=== PATIENT | female | born 1960 | race African-American/Black ===

== ENCOUNTER 2019-03-03 17:51 | Inpatient (IN) ==
--- NOTE | 2019-03-03 18:52 | PROVIDER DOCUMENTATION ---
HPI-General Adult - General Chief Complaint: General Adult Stated Complaint: TRANSVER MYELITIS Time Seen by Provider: 03/03/19 18:11 Source: patient Allergies/Adverse Reactions: Patient Allergies Allergy/AdvReac Type Severity Reaction Status Date / Time No Known Allergies Allergy Verified 03/03/19 18:00 Home Medications: Home Medication List Medication Instructions Recorded Confirmed Last Taken Type Duloxetine [Cymbalta] 60 mg PO BID 03/05/15 03/03/19 03/03/19 History Metformin HCl 500 mg PO BID 02/28/16 03/03/19 03/03/19 History ATORVAstatin [Lipitor] 1 tab PO DAILY 03/03/19 03/03/19 03/02/19 History Amitriptyline HCl 2 tab PO QHS 03/03/19 03/03/19 03/02/19 History Azathioprine 1 tab PO TID 03/03/19 03/03/19 03/03/19 History Carbamazepine [Carbamazepine ER] 1 tab PO DAILY 03/03/19 03/03/19 03/03/19 History Pantoprazole [Protonix] 1 tab PO DAILY 03/03/19 03/03/19 03/03/19 History Pregabalin [Lyrica] 1 cap PO BID 03/03/19 03/03/19 03/03/19 History - History of Present Illness -Gen Adult Nature of Presenting Problems: 58 yr old F, hx of transverse myelitis diagnosed in 2016, presents today with left lower extremity weakness, and complaints of her legs feeling heavy. She reports symptoms started yesterday, and by today, felt as though she could not lift her legs, and so she presented to the ED. Pt was last hospitalized in 2018 with similar symptoms. Today, she denies slurring of speech, chest pain, SOB, headache, changes in vision, and other than her left lower extremity weakness, no other focal weakness. Location of Pain/Injury: reports: lower extremity Onset/Duration: reports: 24 hours ago Similar Symptoms Previously?: Yes Recently seen or treated by another doctor?: No Review of Systems - Adult - REVIEW OF SYSTEMS - ADULT Constitutional: reports: no symptoms reported Eyes: reports: no symptoms reported Ears, Nose, Mouth & Throat: reports: no symptoms reported Cardiovascular: reports: no symptoms reported Respiratory: reports: no symptoms reported Gastrointestinal: reports: no symptoms reported Genitourinary: reports: no symptoms reported Musculoskeletal: reports: no symptoms reported Integumentary: reports: no symptoms reported Neurological: reports: other (left lower extremity weakness) Endocrine: reports: no symptoms reported Past History - Adult - PAST MEDICAL HISTORY-ADULT Review of Records: reports: Nursing Assessment Review, Social history reviewed & non-contributory. Musculoskeletal: reports: fibromyalgia Neurological: reports: other (transverse myelitis) Endocrine/Immune: reports: Diabetes - PRIOR SURGERIES/PROCEDURES Surgical/Procedure History: reports: other (elbow, bunion ) - IMMUNIZATION STATUS Childhood Immunizations: See Nurse Assessment Flu Vaccine: See Nurse Assessment Physical Exam-General - PHYSICAL EXAM-ADULT Initial Vital Signs Reviewed: Yes - CONSTITUTIONAL General Appearance: appears well, alert, no apparent distress - EYES Eyes: PERRL/EOMI - HEAD, EARS, NOSE, MOUTH & THROAT HENMT: normocephalic/atraumatic, moist mucous membranes - RESPIRATORY Respiratory: chest non-tender, lungs clear, normal breath sounds - CARDIOVASCULAR Cardiovascular: regular rate, rhythm - GASTROINTESTINAL (ABDOMEN) Abdominal Exam: normal bowel sounds, non tender, soft - GENITOURINARY Rectal Exam: normal rectal tone - MUSCULOSKELETAL Extremity: non-tender, normal inspection - NEUROLOGIC Neurologic: grossly normal, no motor/sensory deficits - PSYCHIATRIC Psych/Mental Status: normal mood/affect, oriented x 3 Progress - PLAN OF CARE/RESULTS Progress/Plan/Lab Results: Vital Signs - 8 hr 03/03/19 17:56 Temperature 97.7 F Pulse Rate 97 H Respiratory Rate 19 Blood Pressure 122/55 O2 Sat by Pulse Oximetry 97 Orders Category Date Time Status CT HEAD W/O CONTRAST [CT] Stat Exams 03/03/19 18:14 Taken CBC WITH ELECTRONIC DIFF [HEME] Stat Lab 03/03/19 18:15 Uncollected CMP [COMPREHENSIVE METABOLIC PANEL] [CHEM] Stat Lab 03/03/19 18:15 Uncollected PROTIME WITH INR [COAG] Stat Lab 03/03/19 18:15 Uncollected PTT [COAG] Stat Lab 03/03/19 18:15 Uncollected URINALYSIS W/POSS RFLX CULT [URINALYSIS] Stat Lab 03/03/19 18:15 Uncollected Spoke with neurologist via transfer center. Recommend admission here; since case was chronic, no need for transfer at this time. Plan to consult Dr. Townsend in the AM. Spoke with hospitalist about the case, who agreed to accept. Result Diagrams: 03/03/19 18:55 03/03/19 18:55 - CONSULTS/PCP/HOSPITALIST Notification #1 *Consult/PCP/Hospitalist*: Dr. Perez (sp?) Time Discussed: 20:15 Reason/Comments: spoke with Transfer center, no need to transfer but recs admit Consult Disposition: other (spoke with neurologist ([facility], I believe) - does not need transfer as this is a chroninc dx, but they do recommend admission, with consultation with Dr. Townsend, the pt's regular neurologist in the AM.) #2 Consult: Dr. Land Time Discussed: 20:25 Consult Disposition: Admit Departure - Departure Date of Disposition Decision: 03/03/19 Time of Disposition Decision: 20:49 DIAGNOSIS: Hyperglycemia due to type 2 diabetes mellitus, Lower extremity weakness Disposition: ADMITTED INPATIENT 09 Certified Medical Emergency: Emergent Condition: Fair Referrals and Follow-Ups: Manjeet Flores Jr, MD [Primary Care Provider] - - Critical Care Note This patient required my direct & personal management of CC.: No Attestation - Physician/ ANA MARIA Attestation Patient care was provided by Advanced Practice Provider:: No The physician spent face to face time with patient:: Yes Advanced Practice Provider documentation review:: Supervising physician onsite and consulted in the evaluation and care of this patient. The physician did have a face to face encounter with the patient.
--- NOTE | 2019-03-03 19:03 | Diag Imaging Result Doc PS360 ---
EXAM: CT HEAD W/O CONTRAST INDICATION: lower extremity weakness TECHNIQUE: This exam was performed using automated exposure control, adjustment of mA or kV according to patient size, and/or use of iterative reconstruction technique. COMPARISON: 02/27/2016 FINDINGS: There is a small focus of subcortical low-attenuation in the medial left parietal lobe on image 23 of series 2. This probably represents focal white matter microangiopathy. However, it is not clearly identified on the previous study. A small acute subcortical infarct is possible. Please correlate with physical exam. There is no other definite acute infarct given the limited sensitivity of CT versus MRI. There is a bony excrescence seen at the inner table of the skull anteriorly on the left that is stable. This could represent a densely calcified meningioma. There is no other discrete intracranial mass, mass effect, or intracranial hemorrhage. The surrounding soft tissues and bony structures are essentially unremarkable. IMPRESSION: Small low dense focus in the subcortical white matter of the medial left parietal lobe as described that probably represents mild focal white matter microangiopathy. However, an acute subcortical infarct cannot completely be excluded. Please correlate with physical exam. Electronically signed by James Wagner 03/03/2019 7:01 PM
[2019-03-03 19:05] LABS: BASO# 0.01 X1000 (0.0-0.2); BASO% 0.4 % (0.0-0.8); HEMATOCRIT 34.7 % (37.0-47.0); HEMOGLOBIN 12.4 g/dL (12.0-16.0); LYMPH# 0.95 X1000 (1.2-3.4); LYMPH% 40.4 % (20.5-51.1); MCHC 35.7 g/dL (33-37); MCV 92.3 FL (81-99); MONO# 0.17 X1000 (0.11-0.59); MONO% 7.2 % (1.7-9.3); MPV 12.7 FL (7.4-10.4); NEUT# 1.22 X1000 (1.4-6.5); PLT 155 X1000 (130-400); RBC 3.76 XMIL (4.2-5.4); RDW 15.8 % (11.5-14.5); WBC 2.35 X1000 (4.8-10.8)
[2019-03-03 19:12] LABS: INR 0.88
[2019-03-03 19:49] LABS: AGAP 15; ALB/GLOB RATIO 1.5; ALBUMIN 3.7 g/dL (3.5-5.0); ALKALINE PHOSPHATASE 138 U/L (32-104); BUN 13 mg/dL (8-22); CALCIUM 7.7 mg/dL (8.8-10.2); CHLORIDE 92 mmol/L (98-107); COSMO 291; ESTIMATED GFR > 60; GLUCOSE 578 mg/dL (70-104); GOT 18 U/L (10-30); GPT 16 U/L (10-36); POTASSIUM 4.3 mmol/L (3.5-5.1); SODIUM 132 mmol/L (136-145); TCO2 25 mmol/L (25-35); TOTAL BILIRUBIN 0.37 mg/dL (0.20-1.00); TOTAL PROTEIN 6.1 g/dL (6.3-8.3)
[2019-03-03] MEDS ORDERED: NS 1,000 ML IV ONE (19:52)
[2019-03-03] MEDS ORDERED: HUMULIN R SUBQ ONE (19:57)
[2019-03-03 20:46] LABS: URINE SOURCE CLEAN CATCH
[2019-03-03 20:48] LABS: BILIRUBIN URINE NEGATIVE (NEGATIVE); BLOOD URINE NEGATIVE (NEGATIVE); COLOR YELLOW; GLUCOSE URINE >1000 mg/dL (NEGATIVE); KETONE URINE 10 mg/dL (NEGATIVE); LEUKOCYTES URINE NEGATIVE (NEGATIVE); NITRITE URINE NEGATIVE (NEGATIVE); PROTEIN URINE NEGATIVE (NEGATIVE); SP GRAVITY URINE 1.039; TURBIDITY URINE CLEAR (CLEAR); UROBILINOGEN URINE NORMAL (NORMAL)
[2019-03-03 20:49] LABS: UR EPITHELIAL CELLS <10 /HPF (<10); URINE BACTERIA NEGATIVE /HPF; URINE RBC <10 /HPF (<10); URINE WBC <10 /HPF (<10)
[2019-03-04] MEDS ORDERED: ZOFRAN IV PRN (00:48)
[2019-03-04] MEDS ORDERED: TYLENOL PO PRN (00:48)
[2019-03-04] MEDS: NS 1,000 ML IV SCH ×2 (01:30→14:43)
[2019-03-04] MEDS: CYMBALTA PO SCH ×3 (01:55→22:05)
[2019-03-04] MEDS: LYRICA PO SCH ×3 (01:55→22:07)
[2019-03-04] MEDS: ELAVIL PO SCH ×2 (01:56→22:05)
[2019-03-04] MEDS: HUMALOG SUBQ SCH ×5 (02:06→21:05)
--- NOTE | 2019-03-04 06:47 | HISTORY AND PHYSICAL ---
CHIEF COMPLAINT: Exacerbation of transverse myelitis. HISTORY OF PRESENT ILLNESS: The patient is a 58-year-old female who notes that she has a known history of transverse myelitis. She states that it is typically it is based in the left leg with weakness. States she has been told in the past when the pain becomes sharp she is to come to the hospital for treatment. She was in her usual state of health on Monday morning. However, she noted Monday night, 2 nights ago, the patient started having weakness in her left lower extremity today. She states that she was having walking left leg. She therefore came to the hospital. She states she has a known history of diabetes, but does not take anything other than metformin. She does not check her blood sugar on any regular basis. blurred vision lately and states this is not typical of her transverse myelitis symptoms. PAST MEDICAL HISTORY: Fibromyalgia, diabetes, transverse myelitis. SURGICAL HISTORY: She has had surgery on her elbow in the past. FAMILY HISTORY: Noncontributory. No family history of neurological issues. SOCIAL HISTORY: She lives at homes with her sister. Does not smoke or drink. ALLERGIES: No known drug allergies. MEDICATIONS: Cymbalta, metformin 500 mg twice daily, Lipitor, amitriptyline, azathioprine, Protonix, and Lyrica. REVIEW OF SYSTEMS: As noted above. Positive blurred vision. Denied any focalized weakness other than her left lower extremity. Denies any recurrent weakness. Denies headaches, blurred vision, change in vision. Otherwise, the other than the past two or three days, denies dysuria, frequency, urgency, constipation, melena, hematochezia. Denies any weight loss, weight gain, chest pain, palpitations, shortness of breath. PHYSICAL EXAMINATION: VITAL SIGNS: Reviewed. Temperature 97.7 degrees, pulse rate is 97, respiratory 19, BP 122/55. Saturations 97% on room air. GENERAL: Patient is awake, alert. She is in no current respiratory distress. HEENT: Normocephalic. NECK: Supple. CARDIOVASCULAR: Regular rate. CHEST: Clear and nonlabored. ABDOMEN: Soft, nondistended, nontender. EXTREMITIES: Moves all extremities with the exception of left lower extremity which does appear to be slightly weaker than her right lower extremity. NEUROLOGIC: She is awake, alert, and oriented x3 otherwise. LABORATORY DATA: WBCs 2.3. Sodium 132. Creatinine 1.0. Glucose 578. CT head essentially negative. ASSESSMENT: 1. Diabetes with hyperglycemia. 2. Lower extremity weakness, likely secondary to history of transverse myelitis. 3. Leukopenia of unclear origin. 4. Myalgias. 5. Depression. 6. High cholesterol. PLAN: We will continue patient in the hospital on current home medications. We will hold metformin currently in case further imagining needs to be done. She has already been given a fluid bolus as well as insulin bolus in the ER. If we can get her sugar controlled, then we certainly could try steroids at that point. We will consult Neurology in the a.m. cc: Sandoval Land MD [facility]
[2019-03-04 08:04] LABS: BASO# 0.01 X1000 (0.0-0.2); BASO% 0.5 % (0.0-0.8); EOS# 0.01 X1000 (0.0-0.7); EOS% 0.5 % (0.0-10.0); HEMATOCRIT 33.2 % (37.0-47.0); HEMOGLOBIN 11.4 g/dL (12.0-16.0); LYMPH# 0.84 X1000 (1.2-3.4); LYMPH% 40.8 % (20.5-51.1); MCHC 34.3 g/dL (33-37); MCV 93.3 FL (81-99); MONO# 0.17 X1000 (0.11-0.59); MONO% 8.3 % (1.7-9.3); MPV 12.3 FL (7.4-10.4); NEUT# 1.03 X1000 (1.4-6.5); NEUT% 49.9 % (42.2-75.2); PLT 136 X1000 (130-400); RBC 3.56 XMIL (4.2-5.4); RDW 15.7 % (11.5-14.5); WBC 2.06 X1000 (4.8-10.8)
[2019-03-04 08:39] LABS: AGAP 14; BUN 9 mg/dL (8-22); CALCIUM 7.5 mg/dL (8.8-10.2); CHLORIDE 104 mmol/L (98-107); COSMO 283; CREATININE 0.5 mg/dL (0.5-0.9); ESTIMATED GFR > 60; GLUCOSE 215 mg/dL (70-104); POTASSIUM 3.5 mmol/L (3.5-5.1); SODIUM 139 mmol/L (136-145); TCO2 21 mmol/L (25-35)
[2019-03-04] MEDS: LIPITOR PO SCH (08:54)
[2019-03-04] MEDS: PROTONIX PO SCH (08:54)
[2019-03-04] MEDS: LOVENOX SUBQ SCH (08:55)
[2019-03-04] MEDS ORDERED: IMURAN PO SCH (09:00)
--- NOTE | 2019-03-04 10:07 | PROGRESS NOTE ---
DATE: 03/04/2019 Ms. Rivera came in with exacerbation of transverse myelitis. A 58-year-old and she has known history of transverse myelitis, typically based in the left leg with weakness. It seemed to be weaker and came to the emergency room. They found that her blood sugar was high. Actually, the CAT scan revealed may be some improvement. She has a history of fibromyalgia, diabetes mellitus type 2, and transverse myelitis, came on about a year ago. Diabetes mellitus with hyperglycemia. PHYSICAL EXAMINATION: Temperature afebrile. Temperature this morning of 97.9, pulse 80, respirations 18, blood pressure 117/67. Pupils are equal. No distended neck veins. Lungs are clear in all lung yip. Cardiovascular Examination: Regular rhythm and rate without murmur or S3. Abdomen is soft. Skin is warm and dry. ASSESSMENT AND PLAN: Note, she is on a sliding scale. Sugars are back down now. She is on Cymbalta 60 mg twice a day, Lipitor 10 mg a day, Elavil 50 mg at bedtime, Lyrica 150 mg twice a day, and she takes azathioprine three times a day and carbamazepine extended release. She takes that I believe once a day. Dr. Townsend has been consulted. See if he has any recommendations. I think that she can get her sugar under control with just oral medicine. She is on metformin at home. Right now, sugars have come down nicely but I think a combination of metformin and maybe glipizide will keep her sugars low. cc: Jose Olivia MD
--- NOTE | 2019-03-04 17:36 | Diag Imaging Result Doc PS360 ---
EXAM: MRI BRAIN W/WO CONTRAST - 03/04/2019 HISTORY: follow up CT; h/o NMO TECHNIQUE: MRI lumbar spine without and with contrast. COMPARISON: 02/28/2016 MRI brain, 03/03/2019 CT head without contrast FINDINGS: There are chronic microvascular ischemic changes. The diffusion weighted images show no areas of restricted diffusion (no evidence of acute infarct). There is stable small low signal area at the superior left frontal region which is compatible with the calcified lesion arising at the inner table of the skull which is visible on the CT scan. This likely represents an osteoma or meningioma. There is no associated edema. There is no other evidence of intracranial hemorrhage, mass effect, midline shift, or hydrocephalus. There is no abnormal enhancement identified. IMPRESSION: Chronic microvascular ischemic changes. No visible acute intracranial abnormality. No evidence of acute infarct. Electronically signed by Juanito Mcintosh 03/04/2019 5:34 PM
--- NOTE | 2019-03-04 19:05 | Diag Imaging Result Doc PS360 ---
EXAM: MRI CERVICAL SPINE W/CONTRAST - 03/04/2019 HISTORY: left leg weakness, h/o NMO spectrum and TM TECHNIQUE: MRI cervical spine without with contrast. Images are obtained prior to and following gadolinium administration. COMPARISON: 12/11/2017 FINDINGS: There is mild narrowing of the spinal canal at C3-4 by central disc protrusion and ligamentum flavum hypertrophy. This appears of increased, most conspicuously the ligamentum flavum hypertrophy. There is central disc bulge at C4-5. There is mild degenerative narrowing of the right C4-5 neural foramen. There is central disc bulge at C6-7. There is no spinal cord compression identified. There is no spinal cord edema identified. There is no abnormal enhancement identified. There is no subluxation seen. IMPRESSION: Overall mild degenerative changes. These are most prominent at C3-4, where there is associated mild narrowing of the spinal canal. No evidence of spinal cord edema. No evidence of enhancing lesion. Electronically signed by Juanito Mcintosh 03/04/2019 7:03 PM
[2019-03-04] MEDS: TEGRETOL XR PO SCH (19:10)
--- NOTE | 2019-03-04 20:47 | CONSULTATION ---
DATE OF CONSULTATION: 03/04/2019 REASON FOR CONSULT: Left leg weakness. HISTORY OF PRESENT ILLNESS: This is a 58-year-old black female with history of diagnosed transverse myelitis in 2016. I believe she also had positive NMO antibodies and NMO spectrum disorder. She follows with Dr. Townsend. She reports that 3 days ago, on Monday, she began to notice tiredness in her left leg. On Monday, that tiredness persisted and she felt that the left leg was becoming a little bit weaker than her baseline weakness. On Monday, she decided to come to the emergency department for evaluation. She denies increased numbness. Denies visual disturbance, dysarthria, difficulty swallowing, headache. No new back pain or neck pain. No new paresthesia from baseline. No new numbness or weakness elsewhere. No changes to bowel and bladder habits. Since her arrival, she says that the symptoms have plateaued rather than continued to decline as she was expecting. Of note, her blood sugar was noted to be above 500, and she states that is not typical. She does take azathioprine. PAST MEDICAL HISTORY: Includes: 1. Transverse myelitis, diagnosed 2015. MRI report from that time seems to describe longitudinally extensive TM. I believe she may have had positive NMO antibodies, possibly a diagnosis of NMO spectrum disorder. 2. Fibromyalgia. 3. Diabetes. 4. Past elbow surgery. 5. Supraventricular tachycardia. 6. Hiatal hernia. SOCIAL HISTORY: She lives with her sister. No alcohol or tobacco. No illicits. FAMILY HISTORY: No similar neurologic disease. ALLERGIES: No known drug allergies listed. MEDICATIONS: Include: 1. Cymbalta. 2. Metformin. 3. Lipitor. 4. Amitriptyline. 5. Azathioprine. 6. Protonix. 7. Lyrica. REVIEW OF SYSTEMS: Balance of 12 systems conducted and otherwise negative except that detailed in the HPI. PHYSICAL EXAMINATION: Afebrile, blood pressure 117/67, pulse 80, respirations 18, 100% on room air. Ms. Rivera is supine in bed with head of bed elevated. She is awake, alert, oriented. Speech fluent. No language disturbance. She is appropriate and spontaneous. Follows simple and complex commands. Pupils equal, round, and reactive to light. Gaze is conjugate. Ocular movements full. Visual yip intact to direct confrontational testing. Face symmetric with equal activation. Facial sensation reported intact. She can hear. Tongue is midline. Palate elevates symmetrically. Shoulder shrug is full. No drift. Strength in the arms is preserved and symmetric as tested. This is also true for the right lower extremity. In the left lower extremity, strength is preserved with the exception of left knee extensor which I can just over comment 4 to 4+ out of 5. Reflexes are diminished at the wrists, knees, and ankles. No clonus. Plantar response is silent, but with excessive withdrawal. [id number] and rapid alternating movements are preserved. She reports a sensory level at around the T4 level on the left, but not the right, and that is anteriorly and posteriorly. She reports diminished sensation on the left leg compared to the right. She makes errors on joint position sense of the great toes bilaterally, possibly worse on the left on the right, though not certain about that. Gait: She was able to stand without assistance. She did use assistance briefly while walking in the room toward the bathroom door, but subsequently walked by herself in the bathroom. She was able to stand up again afterward without assistance. DIAGNOSTICS: Blood sugar above 500 on admission. White count 2.0. BUN 9, creatinine 0.5. Blood sugar current 359. Calcium 7.5. Urinalysis shows greater than 1000 glucose, [address] on arrival: Small low dense focus in the subcortical white matter of the medial left parietal lobe, probably representing mild global white matter microangiopathy. Acute subcortical infarct cannot be completely excluded. ASSESSMENT AND PLAN: 1. Increased left lower extremity weakness, onset 3 days ago. 2. History of transverse myelitis in 2016. I believe there were positive NMO antibodies and concern for NMO spectrum disorder. 3. Diabetes, poorly controlled, with blood glucose above 500 on admission. I would like to get MRI of the cervical and thoracic spine with and without contrast for evaluation. Since she is ambulating, lacks bowel/bladder changes, is quite hyperglycemic and reports symptoms have stabilized, I would hold off on initiation of steroids at this time. I recommend continuing close monitoring. Continue aggressive blood sugar management. PT. ADDENDUM: pt denied visual symptoms to me, but I see that she reported visual blurring on admission. HCT was questionable. Will add on MRI of the brain, especially given NMO concern. Thank you for this consultation. cc: Mayela Roe MD MTDD
--- NOTE | 2019-03-04 21:00 | Diag Imaging Result Doc PS360 ---
EXAM: MRI THORACIC SPINE W/WO CON - 03/04/2019 HISTORY: left leg weakness; h/o NMO and TM TECHNIQUE: MRI thoracic spine without with contrast. Images are obtained prior to and following gadolinium administration. COMPARISON: 03/01/2016 FINDINGS: There are multilevel degenerative changes with posterior disc bulges. There is mild narrowing the spinal canal at T9-10 and T10-11 by posterior disc bulges in combination with facet hypertrophy. There is no spinal cord compression identified. There is no compression fracture or substantial bone marrow edema identified. There is no subluxation identified. There is some thinning of the upper thoracic spinal cord which is most conspicuous in the AP dimension. There is no spinal cord edema identified. There is no abnormal enhancement identified. IMPRESSION: Multilevel degenerative changes with posterior disc bulges. Mild narrowing of spinal canal at T9-10 and T10-11 by posterior disc bulges and facet hypertrophy. No evidence of spinal cord compression. Thinning of upper thoracic spinal cord which is most conspicuous in the AP dimension. No evidence of spinal cord edema. No evidence of enhancing lesion. Electronically signed by Juanito Mcintosh 03/04/2019 8:58 PM
[2019-03-04] MEDS: IMURAN PO SCH (22:05)
[2019-03-05] MEDS: HUMALOG SUBQ SCH ×5 (01:06→20:48)
[2019-03-05] MEDS: NS 1,000 ML IV SCH ×2 (06:49→16:50)
[2019-03-05] MEDS: TEGRETOL XR PO SCH ×3 (09:56→16:51)
[2019-03-05] MEDS: MIRALAX PO SCH (09:56)
[2019-03-05] MEDS: LOVENOX SUBQ SCH (09:57)
[2019-03-05] MEDS: IMURAN PO SCH ×2 (09:57→20:48)
[2019-03-05] MEDS: CYMBALTA PO SCH ×2 (09:57→20:48)
[2019-03-05] MEDS: LIPITOR PO SCH (09:57)
[2019-03-05] MEDS: PROTONIX PO SCH (09:57)
[2019-03-05] MEDS: LYRICA PO SCH ×2 (10:59→20:51)
--- NOTE | 2019-03-05 14:23 | PROGRESS NOTE ---
DATE: 03/07/2019 SUBJECTIVE: No major overnight events. The patient still feels a little weaker, wobbly with the left leg and says that she is still able to walk however she just does so cautiously. No other new symptoms. Symptoms have not worsened. OBJECTIVE: Afebrile. Blood pressure 121/59, pulse 65. Ms. Rivera is supine in bed, appears to be asleep when I enter the room. She is easily waked, remains attentive. Sits up and participates in the exam. She is oriented and alert. Speech fluent. No dysarthria. Pupils equal, gaze is conjugate. Face symmetric. Her power is preserved with the following exceptions. In the left lower extremity knee flexion 4/5. Power is otherwise preserved in the left lower extremity and quite strong. Sensation is unchanged from yesterday. I did not test her gait today. DATA: MRI of the brain chronic microvascular ischemic changes. No visible acute intracranial abnormality. MRI of the cervical spine with contrast personally reviewed. Impression overall mild degenerative changes most prominent at C3-4 where there is associated mild narrowing of the spinal canal. No evidence of cord edema. No enhancing lesion MRI of the thoracic spine with and without contrast. I personally reviewed. Impression: Multilevel degenerative changes with posterior disk bulges mild narrowing of spinal canal at T9-10 and T10-11. Posterior disk bulges and facet hypertrophy. No evidence of spinal cord compression. Thinning of upper thoracic spinal cord most conspicuous in the AP dimension. No evidence of spinal cord edema no evidence of enhancing lesions. Blood sugars in the 200s today which is improvement. ASSESSMENT AND PLAN: 1. Sensation of increased left lower extremity weakness. Onset 4 days ago. The symptoms have plateaued. This may represent more of a fluctuation and sensory disturbance more so than actual weakness but I am not certain about that. There is not new deficit. 2. 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 3. Diabetes poorly controlled with blood glucose above 500 on admission. Improved in the 200s today. Imaging yesterday looks stable at this time. Her symptoms have plateaued. She remains ambulatory without bowel or bladder changes. This is reassuring. Based on the above I would continue to hold off on high dose steroids at this time and monitor clinically. Continue treating the blood sugar aggressively. She will need physical therapy. She was encouraged to keep her appointment at the end of the month for Rituxan infusion as previously planned. If symptoms worsen or change or she develops new symptoms, we may need to consider to consider steroids at that time. cc: Mayela Roe MD MTDD
--- NOTE | 2019-03-05 15:24 | PROGRESS NOTE ---
DATE: 03/05/2019 SUBJECTIVE: This morning Ms. Rivera refers to be doing a little better. She still says she has some weakness in the left lower extremity. OBJECTIVE: Vital signs: Blood pressure is 121/59, pulse of 65, respirations 18, and temperature 98.8 degrees. General: Ms. Rivera is a 58-year-old female. She is in bed in no distress. HEENT: Mucosa is pink and moist. Anicteric. Acyanotic. Neck: Supple. Chest: Clear to auscultation. Cardiovascular: Regular rate and rhythm. Abdomen: Soft, nontender. Bowel sounds present. Extremities: No pedal edema. 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 There is some mild weakness in the left lower extremity. However, when I explore it multiple times, I did not really get a feel of any weakness, and that also went to the vibration sensory modality. Pin prick seems to be bilaterally unremarkable. However, the patient refers that there was some mild decrease in intensity on the left side than the right side. LABORATORY DATA: CT scan and the cervical MRI shows a central disk bulge at 6, 4 and 5. A central disk bulge at 6-7. Overall, there was a prominent C3-C4 where there is associated mild narrowing of this spinal canal, but otherwise no evidence of enhancing lesion and no evidence of spinal cord edema. The thoracic spine MRI also shows narrowing of spinal canal at T9-T10, T10-11 by posterior disk bulging and facet arthropathy, but no evidence of spinal cord compression. An MRI of the brain shows chronic microvascular changes. No visible intracranial abnormality. No evidence of infarct. ASSESSMENT: 1. 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 The patient has a history of transverse myelitis in 2016 with positive NMO antibodies, and normally follows up with Dr. Townsend. 2. Diabetes mellitus. Patient is on insulin regimen. 3. Obesity with BMI of 30.7. 4. 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 The patient seems to have previous antibodies, anti low positive NURSE SANE also positive. I think at some point she will need to follow up with a audograph operator, and have these tests repeated. PLAN: In general, I think Ms. Rivera is fairly stable. Neurology progress note today seems to suggest that the symptoms have plateaued. They will continue to hold off on steroids. We will encourage physical therapy and, hopefully get Ms. Rivera discharged tomorrow if it is okay with Neurology. cc: Ben Pablo MD MTDD
[2019-03-05] MEDS: ELAVIL PO SCH (20:47)
[2019-03-06] MEDS: HUMALOG SUBQ SCH ×2 (06:10→11:30)
[2019-03-06] MEDS: NS 1,000 ML IV SCH ×2 (06:37→09:20)
[2019-03-06 07:46] LABS: HEMATOCRIT 33.8 % (37.0-47.0); HEMOGLOBIN 11.5 g/dL (12.0-16.0); LYMPH# 0.77 X1000 (1.2-3.4); LYMPH% 43.8 % (20.5-51.1); MCH 32.1 PG (27-31); MCV 94.4 FL (81-99); MONO# 0.16 X1000 (0.11-0.59); MONO% 9.1 % (1.7-9.3); MPV 12.3 FL (7.4-10.4); NEUT# 0.83 X1000 (1.4-6.5); NEUT% 47.1 % (42.2-75.2); PLT 147 X1000 (130-400); RBC 3.58 XMIL (4.2-5.4); RDW 16.4 % (11.5-14.5); WBC 1.76 X1000 (4.8-10.8)
[2019-03-06 08:02] LABS: AGAP 11; ALBUMIN 2.9 g/dL (3.5-5.0); BUN 5 mg/dL (8-22); CALCIUM 7.6 mg/dL (8.8-10.2); CHLORIDE 107 mmol/L (98-107); COSMO 288; CREATININE 0.5 mg/dL (0.5-0.9); ESTIMATED GFR > 60; GLUCOSE 229 mg/dL (70-104); PHOSPHORUS 2.7 mg/dL (2.7-4.5); POTASSIUM 3.7 mmol/L (3.5-5.1); SODIUM 142 mmol/L (136-145); TCO2 24 mmol/L (25-35)
[2019-03-06] MEDS: MIRALAX PO SCH (09:20)
[2019-03-06] MEDS: CYMBALTA PO SCH (09:20)
[2019-03-06] MEDS: IMURAN PO SCH (09:21)
[2019-03-06] MEDS: LOVENOX SUBQ SCH (09:21)
[2019-03-06] MEDS: PROTONIX PO SCH (09:21)
[2019-03-06] MEDS: TEGRETOL XR PO SCH ×2 (09:21→14:09)
[2019-03-06] MEDS: LIPITOR PO SCH (09:21)
[2019-03-06] MEDS: LYRICA PO SCH (09:58)
[2019-03-06 10:57] LABS: IRON SATURATION 40 %; TIBC 203 ug/dL; TOTAL IRON 82 ug/dL (49-151); UNBOUND IRON 121 ug/dL (112-346)
[2019-03-06 11:12] LABS: FERRITIN 97 ng/mL (13-150)
[2019-03-06 12:29] VITALS: BP 121/39
[2019-03-06 15:57] LABS: HEMOGLOBIN A1C 13.2 % (4.8-6.0)
--- NOTE | 2019-03-08 05:04 | DISCHARGE SUMMARY ---
ADMISSION DATE: 03/03/2019 DISCHARGE DATE: 03/07/2019 DISPOSITION: Home. FOLLOW-UP: 1. Dr. Flores. 2. Dr. Townsend. CONSULTATIONS DURING THIS ADMISSION: Neurology was consulted, the patient was seen by Dr. Eaton. INVASIVE PROCEDURES DONE DURING THIS ADMISSION: 1. None. IMAGING STUDIES OF SIGNIFICANCE: 1. A CT scan of the head of the head without contrast showed a small low dense focus in the subcortical white matter of the medial left parietal lobe, probably representing mild focal white matter microangiopathy. 2. An MRI of the cervical spine showed no evidence of spinal cord edema, no evidence of enhancing disease. The thoracic spine showed multilevel degenerative changes with posterior disk bulging. No evidence of spinal cord compression. 3. A brain MRI showed chronic microvascular ischemic changes. No visible acute intracranial abnormality. No evidence of acute infarct. ADMISSION DIAGNOSES: 1. Diabetes with hyperglycemia. 2. Left lower extremity weakness likely secondary to a history of transverse myelitis. 3. Leukopenia of unclear origin. 4. Myalgia. 5. Depression. DIAGNOSES AT THE TIME OF DISCHARGE: 1. 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 2. History of transverse myelitis diagnosed in 2016 with positive NMO antibodies. 3. Uncontrolled diabetes mellitus on presentation with A1c of 13.3. 4. Obesity with BMI of 30.7. 5. 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 6. Remote history Fibromyalgia. 7. Normocytic anemia with underlying iron deficiency. 8. Leukopenia most likely related to the underlying rheumatological disorder. The patient advised to follow up with a director wholesale, and she also has an appointment with Dr. Bautista for possible IVIG infusion. She will be evaluated for the abnormal CBC as well. DISCHARGE MEDICATIONS: 1. Cymbalta 60 mg b.i.d. 2. Metformin 500 b.i.d. 3. Atorvastatin. 4. Azathioprine 50 mg b.i.d. 5. Pantoprazole 40 mg p.o. daily. 6. Lyrica 1 b.i.d. 7. Amitriptyline 50 p.o. at bedtime. 8. Carbamazepine 200 mg 3 times per day. 9. Glipizide 5 mg p.o. daily. PRESENTING COMPLAINT: Exacerbation of transverse myelitis. HISTORY OF PRESENTING COMPLAINT: Ms. Rivera is a 58-year-old female who is known to have a history of transverse myelitis diagnosed at [facility] in 2016, who presented to the emergency department because of left lower extremity weakness. Upon presenting to the emergency department she was evaluated and was also found to have extremely elevated glucose at 578. She was, however, not in DKA. Ms. Rivera presented to [facility]. She was evaluated and admitted for medical management. HOSPITAL COURSE: Ms Rivera was admitted to the medical floor, was initially well fluid resuscitated, and was placed on sliding scale insulin and some long-acting insulin. Her glucose continued to improve throughout the hospital course. Ms Rivera was also seen and evaluated by Neurology on multiple occasions. Multiple testing was done including an MRI of the cervical, thoracic and brain, which most all of them came back with no acute findings. Throughout the hospital course she was also evaluated at least once by Physical Therapy, she was able to do about 200 feet with minimum assist on the day of discharge. Ms. Rivera refers that she does have an appointment with Dr. Harris for some IVIG infusion because of her transverse myelitis. During the hospital course she was also found to have elevated inflammatory markers, leukopenia, and there was concern that she could have undifferentiated versus a mixed connective tissue disorder, and that she needs to follow up with a director wholesale on that regards. All the discharge instructions have been discussed with her. Ms. Rivera has been started on glipizide on top of her metformin for better glycemic control. She has also been given information about diet and exercise. She has been advised that if her glucose is not controlled on oral hypoglycemic agents and also exercise and adequate diet, then she might eventually need to be on insulin. She will follow up with her primary care doctor, Dr. Manjeet Flores. TIME SPENT: Time spent for discharge is 36 minutes. DISCHARGE VITAL SIGNS: On the day of discharge her blood pressure was 121/39, pulse of 65, respiration is 19, temperature is 98.5 degrees, the patient was saturating 100% on room air. PHYSICAL EXAMINATION: Is for the most part unremarkable except for inconsistent lower extremity weakness, but as I said Ms. Rivera has been able to do 200 feet with physical therapy with minimum assist. DISCHARGE RECOMMENDATIONS: The patient has been given an order to repeat a CBC in about a week's time. cc: MD Manjeet Humphrey MD Paul E. Noel, MD
== END 2019-03-06 17:26 | disposition home health service (06) | DRG 60 ==
LOC: ED 17:51 → 3N 23:23 → SUATTDRO 23:23 → 3N 03-04 00:57
PROVIDERS: ATTEND Internal Medicine